=== PATIENT | male | born 1985 | race Caucasian/White ===

== ENCOUNTER 2019-07-30 18:27 | Emergency (ER) | payer SELFPAY ==
[2019-07-30] MEDS ORDERED: LEVOFLOXACIN 750MG/150ML D5W 750 MG/150 ML BAG IV STA (18:32)
[2019-07-30] MEDS ORDERED: solu-MEDROL 125 MG IV ONE (18:32)
[2019-07-30] MEDS ORDERED: DUONEB 0.5-3 MG/3 ml Neb IH ONE ×2 (18:37→18:41)
--- NOTE | 2019-07-30 18:37 | ERPHSYRPT ---
- History of Present Illness Source: patient Exam Limitations: no limitations Timing/Duration: yesterday Activities at Onset: activity Severity of Dyspnea-Max: mild Severity of Dyspnea-Current: moderate Possible Cause: occasional episodes Modifying Factors: Improves With: coughing, exertion Associated Symptoms: intermittent, wheezing, productive cough International travel in last 2 weeks: No <EDEL PALM - Last Filed: 07/30/19 18:35> <KATIANADENNISE - Last Filed: 07/30/19 20:06> - History of Present Illness Time Seen by Provider: 07/30/19 18:29 Physician History: known case of asthma all his life. Gradually worsening shortness of breath since yesterday, not responding to her that her nebulizer treatment. History of bilateral pneumonia in September 2018. Also has a cough with a minimal less sputum. He denies any fever but has chills. no sore throat or earache (EDEL PALM) Allergies/Adverse Reactions: Penicillins Allergy (Severe, Verified 07/30/19 18:37) Swelling Home Medications: Albuterol 17 gm IH DAILY 07/30/19 [History] Albuterol/Ipratropium 3ml Neb* [DUONEB 0.5-3 MG/3 ml Neb] 3 ml IH DAILY [History] Dupilumab [Dupixent] 200 mg SQ UD 07/30/19 [History] Fluticasone Propionate [Flonase NASAL] 16 gm NS DAILY 07/30/19 [History] Fluticasone/Vilanterol [Breo Ellipta 200-25 Mcg INH] 1 each IH DAILY 07/30/19 [ History] Losartan Potassium 50 mg [Cozaar 50 MG] 50 mg PO DAILY 07/30/19 [History] Montelukast Sodium 10 mg [Singulair 10 MG] 10 mg PO DAILY 07/30/19 [History] - Review of Systems Constitutional: No Fever, No Chills Eyes: No Symptoms Ears, Nose, & Throat: No Symptoms Respiratory: Cough, Dyspnea Cardiac: No Chest Pain, No Edema, No Syncope Abdominal/Gastrointestinal: No Abdominal Pain, No Nausea, No Vomiting, No Diarrhea Genitourinary Symptoms: No Dysuria Musculoskeletal: No Back Pain, No Neck Pain Skin: No Rash Neurological: No Dizziness, No Focal Weakness, No Sensory Changes Psychological: No Symptoms Endocrine: No Symptoms All Other Systems: Reviewed and Negative <EDEL PALM - Last Filed: 07/30/19 18:35> - Physical Exam General Appearance: no apparent distress, alert Eye Exam: PERRL/EOMI Neck Exam: normal inspection, supple Respiratory Exam: airway intact, prolonged expirations, wheezing, No chest tenderness, No respiratory distress, No diminished breath sounds, No accessory muscle use Cardiovascular/Chest Exam: normal heart sounds, regular rate/rhythm Abdominal/Gastrointestinal Exam: soft, No tenderness, No distention, No mass Extremity Exam: non-tender, normal range of motion, normal inspection, no calf tenderness, no pedal edema Neurologic Exam: alert, oriented x 3, cooperative, 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, sensation nml, No motor deficits Skin Exam: normal color, warm, No dry <EDEL PALM - Last Filed: 07/30/19 18:35> - Physical Exam Lymphatic Exam: No adenopathy SpO2 Interpretation: normal O2 Delivery: Room Air <DENNISE SAAB - Last Filed: 07/30/19 20:06> - Nursing Vital Signs Nursing Vital Signs: Initial Vital Signs Temperature 102.2 F 07/30/19 18:29 Pulse Rate 122 H 07/30/19 18:29 Respiratory Rate 26 H 07/30/19 18:29 Blood Pressure 146/91 07/30/19 18:29 O2 Sat by Pulse Oximetry 98 07/30/19 18:29 Pain Scale Pain Intensity 1 <EDEL PALM - Last Filed: 07/30/19 18:35> - Course EKG Interpreted by Me: RATE ([id number]), Sinus Rhythm, Sinus Tach, NORMAL AXIS, NORMAL INTERVALS, NORMAL QRS, Non-specific ST Changes - Radiology Exams Chest X-ray Interpretation: Reviewed by me, Negative <DENNISE SAAB - Last Filed: 07/30/19 20:06> Ordered Tests: Active Orders 24 hr Category Date Time Status 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 07/30/19 18:33 Active EKG-ER Only STAT Care 07/30/19 18:32 Active IV Insertion STAT Care 07/30/19 18:32 Active Oxygen-ED Only Nasal Cannula 2 lpm Care 07/30/19 18:32 Active CHEST 1 VIEW (PORTABLE) Stat Exams 07/30/19 18:32 Taken BLOOD CULTURE Stat Lab 07/30/19 18:55 Received CBC W DIFF Stat Lab 07/30/19 18:45 Completed CMP Stat Lab 07/30/19 18:45 Completed Lactic Acid Stat Lab 07/30/19 18:50 Completed MAGNESIUM Stat Lab 07/30/19 18:45 Completed TROPONIN Q3H Lab 07/30/19 18:45 Completed TROPONIN Q3H Lab 07/30/19 21:45 Ordered Peak Expiratory Flow Rate ONCE RT 07/30/19 18:48 Active Respiratory Therapy Assessment DAILY RT 07/30/19 18:48 Active Medication Summary Generic Name Dose Route Start Last Admin Trade Name Freq PRN Reason Stop Dose Admin Levofloxacin/Dextrose 750 mg in 150 mls @ 100 mls/hr 07/30/19 18:32 07/30/19 18:59 Levofloxacin 750mg/150ml D5w IV 07/30/19 20:01 150 mls/hr STAT STA 150 mls/hr Administration Discontinued Medications Generic Name Dose Route Start Last Admin Trade Name Freq PRN Reason Stop Dose Admin Albuterol/Ipratropium 3 ml 07/30/19 18:37 07/30/19 18:46 Duoneb 0.5-3 Mg/3 Ml Neb IH 07/30/19 18:38 3 ml STAT ONE Administration Albuterol/Ipratropium Confirm 07/30/19 18:41 Duoneb 0.5-3 Mg/3 Ml Neb Administered 07/30/19 18:42 Dose 3 ml IH .STK-MED ONE Sodium Chloride 1,000 mls @ 999 mls/hr 07/30/19 18:45 07/30/19 19:03 Sodium Chloride 0.9% 1000 Ml IV 07/30/19 19:45 999 mls/hr .Q1H1M STA Administration Levofloxacin/Dextrose Confirm 07/30/19 18:46 Levofloxacin 750mg/150ml D5w Administered 07/30/19 18:47 Dose 750 mg in 150 mls @ ud IV .STK-MED ONE Sodium Chloride Confirm 07/30/19 19:02 Sodium Chloride 0.9% 1000 Ml Administered 07/30/19 19:03 Dose 1,000 mls @ ud .ROUTE .STK-MED ONE Ibuprofen 400 mg 07/30/19 18:44 07/30/19 19:00 Motrin 400 Mg PO 07/30/19 18:45 400 mg STAT ONE Administration Ibuprofen Confirm 07/30/19 18:46 Motrin 400 Mg Administered 07/30/19 18:47 Dose 400 mg .ROUTE .STK-MED ONE Methylprednisolone Sodium Succinate 125 mg 07/30/19 18:32 07/30/19 19:00 Solu-Medrol 125 Mg IV 07/30/19 18:33 125 mg STAT ONE Administration Methylprednisolone Sodium Succinate Confirm 07/30/19 18:46 Solu-Medrol 125 Mg Administered 07/30/19 18:47 Dose 125 mg .ROUTE .STK-MED ONE Oseltamivir Phosphate 75 mg 07/30/19 19:41 Tamiflu 75mg Capsule PO 07/30/19 19:42 STAT ONE Lab/Rad Data: Laboratory Result Diagrams 07/30/19 18:45 07/30/19 18:45 Laboratory Results 07/30/19 07/30/19 07/30/19 Range/Units 18:55 18:50 18:45 WBC (4.0-10.5) K/mm3 RBC (4.1-5.6) M/mm3 Hgb (12.5-18.0) gm/dl Hct (42-50) % MCV (78-100) fl MCH (26-32) pg MCHC (32-36) g/dl RDW (11.5-14.0) % Plt Count (150-450) K/mm3 MPV (6-9.5) fl Gran % (36.0-66.0) % Eos # (Auto) (0-0.5) Absolute Lymphs (auto) (1.0-4.6) Absolute Monos (auto) (0.0-1.3) Lymphocytes % (24.0-44.0) % Monocytes % (0.0-12.0) % Eosinophils % (0.00-5.0) % Basophils % (0.0-0.4) % Absolute Granulocytes (1.4-6.9) Basophils # (0-0.4) Sodium (137-145) mmol/L Potassium (3.5-5.1) mmol/L Chloride (98-107) mmol/L Carbon Dioxide (22-30) mmol/L Anion Gap (5-15) MEQ/L BUN (9-20) mg/dL Creatinine (0.66-1.25) mg/dL Estimated GFR ML/MIN Glucose (74-106) mg/dL Lactic Acid 1.7 (0.4-2.0) Calcium (8.4-10.2) mg/dL Magnesium (1.6-2.3) mg/dL Total Bilirubin (0.2-1.3) mg/dL AST (17-59) U/L ALT (0-50) U/L Alkaline Phosphatase (38-126) U/L Troponin I < 0.012 (0.000-0.034) ng/mL Serum Total Protein (6.3-8.2) g/dL Albumin (3.5-5.0) g/dL Influenza Type A Ag POSITIVE (NEGATIVE) Influenza Type B Ag NEGATIVE (NEGATIVE) RSV (PCR) NEGATIVE (Negative) 07/30/19 07/30/19 07/30/19 Range/Units 18:45 18:45 18:45 WBC 7.5 (4.0-10.5) K/mm3 RBC 4.67 (4.1-5.6) M/mm3 Hgb 13.0 (12.5-18.0) gm/dl Hct 38.7 L (42-50) % MCV 82.9 (78-100) fl MCH 27.8 (26-32) pg MCHC 33.6 (32-36) g/dl RDW 14.8 H (11.5-14.0) % Plt Count 223 (150-450) K/mm3 MPV 9.8 H (6-9.5) fl Gran % 81.1 H (36.0-66.0) % Eos # (Auto) 0.09 (0-0.5) Absolute Lymphs (auto) 0.64 L (1.0-4.6) Absolute Monos (auto) 0.66 (0.0-1.3) Lymphocytes % 8.6 L (24.0-44.0) % Monocytes % 8.8 (0.0-12.0) % Eosinophils % 1.2 (0.00-5.0) % Basophils % 0.3 (0.0-0.4) % Absolute Granulocytes 6.05 (1.4-6.9) Basophils # 0.02 (0-0.4) Sodium 138 (137-145) mmol/L Potassium 3.7 (3.5-5.1) mmol/L Chloride 102 (98-107) mmol/L Carbon Dioxide 28 (22-30) mmol/L Anion Gap 11.8 (5-15) MEQ/L BUN 15 (9-20) mg/dL Creatinine 0.90 (0.66-1.25) mg/dL Estimated GFR > 60.0 ML/MIN Glucose 91 (74-106) mg/dL Lactic Acid (0.4-2.0) Calcium 9.4 (8.4-10.2) mg/dL Magnesium 1.5 L (1.6-2.3) mg/dL Total Bilirubin 0.70 (0.2-1.3) mg/dL AST 25 (17-59) U/L ALT 24 (0-50) U/L Alkaline Phosphatase 51 (38-126) U/L Troponin I (0.000-0.034) ng/mL Serum Total Protein 7.2 (6.3-8.2) g/dL Albumin 4.2 (3.5-5.0) g/dL Influenza Type A Ag (NEGATIVE) Influenza Type B Ag (NEGATIVE) RSV (PCR) (Negative) <EDEL PALM - Last Filed: 07/30/19 18:35> - Progress Progress: improved Air Movement: good Blood Culture(s) Obtained: Yes Antibiotics given: Yes <DENNISE SAAB - Last Filed: 07/30/19 20:06> - Progress Progress Note: 07/30/19 20:00 patient was reexamined by myself and found to have relatively clear lung lora. His influenza A is positive we will treat him with steroids and Levaquin and Tamiflu (DENNISE SAAB) <EDEL PALM - Last Filed: 07/30/19 18:35> - Departure Departure Disposition: Home Critical Care Time: No <DENNISE SAAB - Last Filed: 07/30/19 20:06> - Departure Clinical Impression: Influenza A Condition: Stable Additional Instructions: Influenza A Prescriptions: Levofloxacin [Levaquin 500 MG Tablet] 500 mg PO DAILY #7 tablet Oseltamivir 75 mg [Tamiflu 75MG Capsule] 75 mg PO BID #10 cap Prednisone 5 mg [Deltasone 5 mg] 5 mg PO TID #12 tablet
[2019-07-30] MEDS ORDERED: MOTRIN 400 MG PO ONE (18:44)
[2019-07-30] MEDS ORDERED: Sodium Chloride 0.9% 1000 ML 1,000 ML IV STA (18:45)
[2019-07-30] MEDS ORDERED: solu-MEDROL 125 MG ONE (18:46)
[2019-07-30] MEDS ORDERED: MOTRIN 400 MG ONE (18:46)
[2019-07-30] MEDS ORDERED: LEVOFLOXACIN 750MG/150ML D5W 750 MG/150 ML BAG IV ONE (18:46)
[2019-07-30 19:00] LABS: Absolute Neutrophil Ct (ANC) 6.05 (1.4-6.9); BASOPHIL % 0.3 % (0.0-0.4); Basophil (Absolute #) 0.02 (0-0.4); Eosinophil % 1.2 % (0.00-5.0); Eosinophil (Absolute #) 0.09 (0-0.5); Hematocrit 38.7 % (42-50); Lymphocyte (Absolute #) 0.64 (1.0-4.6); Lymphocytes % 8.6 % (24.0-44.0); Mean Cell Volume 82.9 fl (78-100); Mean Corpuscular Hemoglobin 27.8 pg (26-32); Mean Corpuscular Hgb Concent. 33.6 g/dl (32-36); Mean Platelet Volume 9.8 fl (6-9.5); Monocyte (Absolute #) 0.66 (0.0-1.3); Monocytes % 8.8 % (0.0-12.0); Neutrophil % 81.1 % (36.0-66.0); Platelet Count 223 K/mm3 (150-450); Red Blood Count 4.67 M/mm3 (4.1-5.6); Red Cell Distribution Width 14.8 % (11.5-14.0); White Blood Count 7.5 K/mm3 (4.0-10.5)
[2019-07-30] MEDS ORDERED: Sodium Chloride 0.9% 1000 ML 1,000 ML ONE (19:02)
[2019-07-30 19:15] LABS: ALBUMIN 4.2 g/dL (3.5-5.0); ALKALINE PHOSPHATASE 51 U/L (38-126); ANION GAP 11.8 MEQ/L (5-15); BLOOD UREA NITROGEN 15 mg/dL (9-20); CHLORIDE 102 mmol/L (98-107); Calcium 9.4 mg/dL (8.4-10.2); Carbon Dioxide 28 mmol/L (22-30); Glucose 91 mg/dL (74-106); Potassium 3.7 mmol/L (3.5-5.1); SGOT/AST 25 U/L (17-59); SGPT/ALT 24 U/L (0-50); SODIUM 138 mmol/L (137-145); Total Protein 7.2 g/dL (6.3-8.2)
[2019-07-30 19:39] LABS: INFLUENZA A POSITIVE (NEGATIVE); INFLUENZA B NEGATIVE (NEGATIVE); RESPIRATORY SYNCTIAL VIRUS NEGATIVE (Negative)
[2019-07-30] MEDS ORDERED: Tamiflu 75MG Capsule PO ONE ×2 (19:41→20:00)
[2019-07-30 20:11] VITALS: BP 129/66; PULSE 112; O2SAT 96
--- NOTE | 2019-07-31 08:45 | XRAY ---
Indication: Fever, short of breath, and diarrhea. Comparison: None Portable chest demonstrates normal heart, lungs, and bony thorax with incidental calcified granulomas.
== END 2019-07-30 20:21 | disposition home or self-care (01) ==
LOC: ED 18:27
DX: J10.1 Influenza due to other identified influenza virus with other respiratory manifestations (principal)
CPT/HCPCS: 36000; 36415; 71045; 80053; 83605; 83735; 84484; 85025; 87040; 87631; 87651; 94150; 94640; 96360; 96365; 96374; 99284; J1956; J2930; A9270-GY